=== PATIENT | female | born 1975 ===

== ENCOUNTER 2025-06-08 08:31 | Outpatient (REF) | payer BC, SELFPAY ==
--- NOTE | ~2025-06-08 | XR_ITS ---
CLINICAL HISTORY: M25.511 - Pain in right shoulder 3 view right shoulder Comparison: None provided Findings: No fractures or dislocations. Mild osteoarthritis of the right shoulder. No erosions. No radiopaque foreign body. Partially visualized lungs are unremarkable. IMPRESSION: 1. No acute findings This document has been electronically signed by: Fidencio Bee MD on 06/10/2025 02:57:42
--- OUTSIDE RECORDS SUMMARY | 2025-06-08 08:50 | XMS_ITS | Clinical Summary ---
Author Organization [facility] ity Address [address] [place] [address] Care Team Providers Care Nondestructive Tester Name Role Phone Krystle Cao MD Primary Care Provider Social History Tobacco Use Types Packs/Day Years Used Date Smoking Tobacco: Never Assessed Comments Unknown Sex and Gender Information Value Date Recorded Sex Assigned at Not on file Legal Sex Female 1:58 AM EST Gender Identity Not on file Sexual Orientation Not on file Plan of Treatment Health Maintenance Due Date Last Done Comments Breast Cancer Screening 1973 DTaP,Tdap,and Td Vaccines (1 - Tdap) 1992 Hepatitis B Vaccines (1 of 3 - 19+ 3-dose series) 1992 Cervical Cancer Screening: P ap Smear 1994 Colorectal Cancer Screening: Colonoscopy 08/16/2022 HIV Screening 08/16/2022 Hepatitis C Screening 08/16/2022 Social Influencers of Health Screening 08/16/2022 Pneumococcal Vaccine: 50+ Ye ars (1 of 1 - PCV) 2023 Zoster Vaccines (1 of 2) 2023 Depression Screening 09/13/2024 COVID-19 Vaccine (1 - 2023-2 5 season) 2025 Influenza Vaccine (#1) 2025 HIB Vaccines Aged Out No longer eligi ble based on patient's age to complete this topic HPV Vaccines Aged Out No longer eligi ble based on patient's age to complete this topic Hepatitis A Vaccines Aged Out No long er eligible based on patient's age to complete this topic IPV Vaccines Aged Out No longer eligi ble based on patient's age to complete this topic MMR Vaccines Aged Out No longer eligi ble based on patient's age to complete this topic Meningococcal ACWY Vaccine Aged Out N o longer eligible based on patient's age to complete this topic Meningococcal B Vaccine Aged Out No l onger eligible based on patient's age to complete this topic RSV Immunization Patients Un justus 20 months Aged Out No longer eligible b ased on patient's age to complete this topic Varicella Vaccines Aged Out No longer eligible based on patient's age to complete this topic Care Teams Nondestructive Tester Relationship Specialty Start Date End Date Krystle Cao MD PCP - General 09/13/08
== END 2025-06-08 08:32 | disposition home or self-care (01) ==
LOC: HO.HOSX 08:31
PROVIDERS: Visit Provider Physician Assistant
DX: S46.211A Strain of muscle, fascia and tendon of other parts of biceps, right arm, initial encounter (principal); X50.3XXA Overexertion from repetitive movements, initial encounter; Y93.89 Activity, other specified; Y92.242 Post office as the place of occurrence of the external cause; Y99.0 Civilian activity done for income or pay
CPT/HCPCS: 73030

== ENCOUNTER 2025-06-08 10:20 | Outpatient (AMB) | payer BC, SELFPAY ==
--- NOTE | 2025-06-08 10:33 | MHC.OFFVIS ---
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 MRI scanned into chart. Patient seen by PCP who ordered MRI and referred to orthopedics. 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 She was repetitively performing overhead lifting while filling up a bin, states that when she went up she was not able to raise her arm. She has complaints of limited ROM. History of right shoulder RTC repair with Dr. Warren, states her pain is worse than before her surgery in the past. 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 She states she has a history of surgery back in 2002 or 2003 right shoulder rtc repair with dr Warren. She recovered well. She states around February or March she developed right shoulder pain. 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 She states one day she was filling some trays and as she reached up to lock it , she had pain in the right shoulder and is now unable to loft the arm. [facility] Surgical History (Updated 06/08/25 @ 10:41 by RUDDY Agrawal) Hx of shoulder surgery Hx of cholecystectomy Social History (Updated 06/08/25 @ 10:41 by RUDDY Agrawal) Patient Tobacco Use Status: Current everyday Tobacco user Current occupational status: unemployed Current occupation: right hand dominant Review of Systems Const All systems reviewed & are unremarkable except as noted in HPI and below Physical Exam Vital Signs: BMI result Body Mass Index 22.3 Const General: cooperative and no acute distress Orientation/consciousness: patient oriented x3 Resp Effort & Inspection: normal respiratory effort and able to speak in complete sentences Cardio Peripheral pulses: Peripheral pulses 2+ throughout Neuro General: patient oriented x3 Extrem Other: Right shoulder normal to inspection. She does have limited motion with forward flexion to approximately 85 degrees. She has significant tenderness over the proximal biceps tendon with a positive [place]'s. She is able to activate rotator cuff strength. Neurovascularly intact. Results Reviewed Results Reviewed: X-rays of the right shoulder obtained in the office today and reviewed by me show evidence of subacromial decompression and rotator cuff repair. Assessment & Plan Assessment & Plan (1) Rupture of right proximal biceps tendon: Code(s): S46.211A - Strain of muscle, fascia and tendon of other parts of biceps, right arm, initial encounter Category: Medical Plan: I offered the patient an injection in the office today which she would like to hold off on. I also discussed with her potential surgical intervention for her shoulder given she has some AC joint arthritis but also a partial tear of the proximal biceps tendon. Since she is known to Dr. Warren and she has had surgery with him in the past I will have her see him to discuss further. The patient is content with this plan. Orders: Orders XR shoulder RT min 2V Today M25.511 - Pain in right shoulder Coding Level of Care Code New Pt Level 3 (02017) Complex EM visit Add On G2211 Diagnoses Rupture of right proximal biceps tendon S46.211A
[2025-06-08 10:43] VITALS: BMI 22.3
== END 2025-06-08 11:11 | disposition home or self-care (01) ==
LOC: HO.HOS 10:20
PROVIDERS: Visit Provider Physician Assistant
DX: S46.211A Strain of muscle, fascia and tendon of other parts of biceps, right arm, initial encounter (principal)
CPT/HCPCS: 99203

== ENCOUNTER → 2025-06-08 10:22 | Outpatient (BNV) | payer BC, SELFPAY | PROVIDERS: Visit Provider Student in an Organized Health Care Education/Training Program | DX: M25.511 Pain in right shoulder (principal) | CPT/HCPCS: 73030 ==

== ENCOUNTER 2025-06-13 12:44 | Outpatient (AMB) | payer BC, SELFPAY ==
--- NOTE | 2025-06-13 12:56 | MHC.OFFVIS ---
Vital Signs 06/13/25 12:59 Height 5 ft 2 in Weight 122 lb BMI 22.3 Intake Visit Reasons: Right shoulder pain and weakness Intake Note: Bj is a 49 year old male who presents with complaints of progressively worsening right shoulder pain and weakness. The patient states that her symptoms have gotten worse over the last few years. She reports difficulty lifting her right hand to shoulder height. She states that she had a recent right shoulder MRI. She is not sure what MRI facility perform the MRI. She thinks it may have been at [facility] or in [place]. Allergies acetaminophen (From Percocet) Allergy (Verified 06/13/25 12:59) itchy, hives oxycodone (From Percocet) Allergy (Verified 06/13/25 12:59) itchy, hives Sulfa (Sulfonamide Antibiotics) Allergy (Verified 06/13/25 12:59) itchy, hives Medication List - Last Reconciled 06/13/25 by Feliberto Warren MD cyclobenzaprine 5 - 10 mg PO BID PRN pregabalin 75 mg PO BID PFSH Surgical History (Updated 06/08/25 @ 10:41 by RUDDY Agrawal) Hx of shoulder surgery Hx of cholecystectomy Social History (Updated 06/08/25 @ 10:41 by RUDDY Agrawal) Patient Tobacco Use Status: Current everyday Tobacco user Current occupational status: unemployed Current occupation: right hand dominant Physical Exam Vital Signs: BMI result Body Mass Index 22.3 Const Other: Well-nourished well-developed very friendly female awake alert and oriented x3 in no acute distress Extrem Other: Right shoulder examination shows decreased range of motion when compared to her left shoulder, 4/5 strength with supraspinatus testing, positive impingement signs, no instability Results Reviewed Results Reviewed: X-rays of the patient's right shoulder show severe acromioclavicular joint narrowing, a type 2 acromion, no acute bony abnormalities MRI report of the patient's right shoulder is not available today. Assessment & Plan Assessment & Plan (1) Rotator cuff insufficiency of right shoulder: Code(s): M25.311 - Other instability, right shoulder Category: Medical Plan Ms. Green presents with progressively worsening right shoulder pain and weakness most likely due to a rotator cuff tear. I will attempt to get the patient's MRI report. I will call her once the report is available to discuss the findings and treatment options. Feel free to call me at any time should questions regarding her orthopedic management arise. I spent 22 minutes in reviewing the patient's records and imaging studies, seeing the patient and documenting in the medical record. Coding Level of Care Code New Pt Level 3 (94899) Complex EM visit Add On G2211 Diagnoses Rotator cuff insufficiency of right shoulder M25.311
[2025-06-13 12:59] VITALS: BMI 22.3
--- OUTSIDE RECORDS SUMMARY | 2025-06-13 14:05 | XMS_ITS | Clinical Summary ---
Author Organization [facility] Address [address] [place] [address] Care Team Providers Care Stripper Preliminary Name Role Phone Krystle Cao MD Primary [...] Last Done Comments Breast Cancer Screening 1973 Colorectal Cancer Screening: Colonoscopy 1973 DTaP,Tdap,and Td Vaccines (1 - Tdap) 1992 Hepatitis B Vaccines (1 of 3 - 19+ 3-dose series) 1992 Cervical Cancer Screening: P ap Smear 1994 HIV Screening 08/16/2022 Hepatitis C Screening 08/16/2022 Social Influencers of Health Screening 08/16/2022 Pneumococcal Vaccine: 50+ Ye ars (1 of 1 - PCV) 2023 Zoster Vaccines (1 of 2) 2023 Depression Screening 09/13/2024 COVID-19 Vaccine (1 - 2023-2 5 season) 2025 Influenza Vaccine (#1) 2025 RSV Immunization Adult Patie nts (1 - 1-dose 75+ series) 2048 HIB Vaccines Aged Out No longer eligi [...] age to complete this topic Care Teams Stripper Preliminary Relationship Specialty Start Date End Date Krystle Cao MD PCP - General 09/13/08
== END 2025-06-13 13:13 | disposition home or self-care (01) ==
LOC: HO.HOS 12:45
PROVIDERS: Visit Provider Orthopaedic Surgery
DX: M25.311 Other instability, right shoulder (principal)
CPT/HCPCS: 99203

== ENCOUNTER 2025-07-12 12:24 | Outpatient (AMB) | payer BC, SELFPAY ==
--- NOTE | 2025-07-12 12:38 | A.OFFVIS_ITS ---
Vital Signs 07/12/25 12:46 Height 5 ft 2 in Weight 122 lb BMI 22.3 Intake Visit Reasons: Right shoulder pain Intake Note: Bj is a 50 year old right hand dominant female who presents with complaints of progressively worsening right shoulder pain. She describes her pain as sharp and severe in nature. Her pain has gotten worse over the last few years in spite of continued non operative treatments. She has had cortisone injections in the past which gave her minimal relief. She has also tried Tylenol, anti- inflammatory medicines and physical therapy exercises which gave her no relief. The patient reports difficulty lifting her right hand above shoulder height. Allergies acetaminophen (From Percocet) Allergy (Verified 07/12/25 12:46) itchy, hives acetazolamide Allergy (Verified 07/12/25 12:46) Hives butalbital (From Fioricet) Allergy (Verified 07/12/25 12:46) Unknown caffeine (From Fioricet) Allergy (Verified 07/12/25 12:46) Unknown metformin Allergy (Verified 07/12/25 12:46) Gastrointestinal Upset oxycodone (From Percocet) Allergy (Verified 07/12/25 12:46) itchy, hives Sulfa (Sulfonamide Antibiotics) Allergy (Verified 07/12/25 12:46) itchy, hives sumatriptan Allergy (Verified 07/12/25 12:46) Unknown varenicline Allergy (Verified 07/12/25 12:46) Unknown Medication List - Last Reconciled 07/12/25 by Feliberto Warren MD diazepam 5 mg PO DAILY PRN PFSH Medical History Arthritis Anemia Current smoker Vitamin D deficiency Uninodular goiter PTSD (post-traumatic stress disorder) Prediabetes PCOS (polycystic ovarian syndrome) Nicotine dependence Migraine Depression Lump of right breast Insomnia Hyperemesis Gestational diabetes mellitus COVID-19 Generalized anxiety disorder with panic attacks GERD (gastroesophageal reflux disease) Eczema Disc disorder of lumbar region Diarrhea DJD (degenerative joint disease) Chronic cystitis Back pain Arthralgia of temporomandibular joint Anxiety Allergic rhinitis Adverse effect of COVID-19 vaccine Acne Abnormal mammogram of left breast Surgical History Hx of tooth extraction Hx of hysterectomy History of hysteroscopy Hx of umbilical hernia repair Hx of section Hx of dilation and curettage Hx of tonsillectomy Hx of arthroscopy Hx of breast biopsy Hx of shoulder surgery Hx of cholecystectomy Social History Household Members Other:: SON Are you a primary palliative care coordinator to a significant other at home: Yes Do you presently have visiting nurse or other home services: No Patient Tobacco Use Status: Current everyday Tobacco user Tobacco use type: Cigarette Cigarette Packs Per Day: 1.0 Cigarettes Per Day: 20.0 Use of substances other than those prescribed or required for medical reasons: No Have you been hit, kicked, punched, or otherwise hurt by someone within the past year? If so, by whom?: No Are you DNR?: No Advance Directives: No Advance Directives Information Provided: No Advance Directives on File: No Patient : No : No Current occupational status: unemployed Current occupation: right hand dominant Physical Exam Vital Signs: BMI result Body Mass Index 22.3 Const Other: Well-nourished well-developed very friendly female awake alert and oriented x3 in no acute distress Extrem Other: Right shoulder examination shows decreased range of motion when compared to her left shoulder, 4/5 strength with supraspinatus testing, positive impingement signs, tenderness over her acromioclavicular joint, no instability Results Reviewed Results Reviewed: MRI of the patient's right shoulder shows severe acromioclavicular joint narrowing, a type 2 acromion, signal change within the supraspinatus tendon most likely due to a full-thickness rotator cuff tear Assessment & Plan Assessment & Plan (1) Right shoulder pain: Code(s): M25.511 - Pain in right shoulder (2) Impingement syndrome of right shoulder: Code(s): M75.41 - Impingement syndrome of right shoulder Category: Medical Plan Ms. Green presents with right shoulder pain and weakness due to impingement syndrome, acromioclavicular joint arthritis and most likely a full-thickness rotator cuff tear. I had a lengthy discussion with the patient regarding the treatment options. At this point she has failed continued non operative treatments. The risks and benefits of right shoulder surgery were discussed at length with the patient. The patient wishes to proceed with surgery. Surgery will most likely involve right shoulder arthroscopic distal clavicle excision, right shoulder arthroscopic acromioplasty and right shoulder mini open rotator cuff repair. The patient will be given a prescription for pain medicine at the time of her surgery. She will follow up as instructed. Feel free to call me at any time should questions regarding her orthopedic management arise. I spent 21 minutes in reviewing the patient's records and imaging studies, seeing the patient and documenting in the medical record. Coding Level of Care Code Est Pt Level 3 (47636) Complex EM visit Add On G2211 Diagnoses Right shoulder pain M25.511 Impingement syndrome of right shoulder M75.41
[2025-07-12 12:46] VITALS: BMI 22.3
== END 2025-07-12 13:00 | disposition home or self-care (01) ==
LOC: HO.HOS 12:25
PROVIDERS: Visit Provider Orthopaedic Surgery
DX: M25.511 Pain in right shoulder (principal); M75.41 Impingement syndrome of right shoulder
CPT/HCPCS: 99214

== ENCOUNTER 2025-07-20 07:02 | Day surgery (SDC) | payer BC, SELFPAY ==
[2025-07-09 11:31] VITALS: BMI 22.3
[2025-07-20] VITALS (9 sets, daily range): BP systolic 126–158; BP diastolic 72–93; PULSE 72–95; RESP 16–18; TEMP 36.1–36.9; O2SAT 96–97; BMI 22.9
[2025-07-20] MEDS: Lactated Ringers 1,000 ML 100 ML IVCONT (07:36)
--- NOTE | 2025-07-20 08:25 | HO.ANESPROP2 ---
Documented by User: Anna Arambula NP 07/19/25 14:46 HPI - Anesthesia Eval Consult details Narrative: 50 yr old female for right Shoulder Arthroscopy,distal clavicle excision,acromioplasty with possible Mini Open RCR; secheduled for 07/20/25, had phone PAT screening with RN Smoking 1 pk cigarettes per day Saw [facility] preop clinic for medical clearance 07/05/25: no absolute contraindications identified to proceeding with proposed surgery PMFSH Active Problems Active Problems: All Active Problems Rotator cuff insufficiency of right shoulder (Acute) Rupture of right proximal biceps tendon (Acute) Past Medical History Medical History Arthritis Anemia Current smoker Vitamin D deficiency Uninodular goiter PTSD (post-traumatic stress disorder) Prediabetes PCOS (polycystic ovarian syndrome) Nicotine dependence Migraine Depression Lump of right breast Insomnia Hyperemesis Gestational diabetes mellitus COVID-19 Generalized anxiety disorder with panic attacks GERD (gastroesophageal reflux disease) Eczema Disc disorder of lumbar region Diarrhea DJD (degenerative joint disease) Chronic cystitis Back pain Arthralgia of temporomandibular joint Anxiety Allergic rhinitis Adverse effect of COVID-19 vaccine Acne Abnormal mammogram of left breast Surgical History Surgical History Hx of tooth extraction Hx of hysterectomy History of hysteroscopy Hx of umbilical hernia repair Hx of section Hx of dilation and curettage Hx of tonsillectomy Hx of arthroscopy Hx of breast biopsy Hx of shoulder surgery Hx of cholecystectomy Social History Social History Household Members Other:: SON Are you a primary primary care physician to a significant other at home: Yes Do you presently have visiting nurse or other home services: No Patient Tobacco Use Status: Current everyday Tobacco user Tobacco use type: Cigarette Cigarette Packs Per Day: 1.0 Cigarettes Per Day: 20.0 Use of substances other than those prescribed or required for medical reasons: No Have you been hit, kicked, punched, or otherwise hurt by someone within the past year? If so, by whom?: No Are you DNR?: No Advance Directives: No Advance Directives Information Provided: Yes Advance Directives on File: No Patient : No : No Current occupational status: unemployed Current occupation: right hand dominant Meds Allergies Allergy/AdvReac Type Severity Reaction Status Date / Time acetazolamide Allergy Hives Verified 07/12/25 12:46 butalbital (From Fioricet) Allergy Unknown Verified 07/12/25 12:46 caffeine (From Fioricet) Allergy Unknown Verified 07/12/25 12:46 metformin Allergy Gastrointestinal Verified 07/12/25 12:46 Upset oxycodone (From Percocet) Allergy itchy, Verified 07/12/25 12:46 hives Sulfa (Sulfonamide Allergy itchy, Verified 07/12/25 12:46 Antibiotics) hives sumatriptan Allergy Unknown Verified 07/12/25 12:46 varenicline Allergy Unknown Verified 07/12/25 12:46 Home Medications ?Medication ?Instructions ?Recorded ?Confirmed ?Last Taken ?Type No Known Home Meds 07/20/25 07/20/25 Unknown History Exam Height,Weight and Vital Signs: Height 5 ft 2 in Weight 55.338 kg Pertinent Lab Results Pertinent Lab Results: [facility] results 07/05/25 WBC 5 RBC 4.87 Hgb 12 Hct 38.6 Platelet 295 Sodium 137 Potassium 4.1 Glucose 102 BUN 12 Creat 0.8 Calcium 9.6 Narrative Narrative: EKG 11/10/24 Normal sinus rhythm, rate [address]-T wave changes Documented by User: July Joseph DO 07/20/25 09:23 [facility] Past Medical History Medical History Arthritis Anemia Current smoker Vitamin D deficiency Uninodular goiter PTSD (post-traumatic stress disorder) Prediabetes PCOS (polycystic ovarian syndrome) Nicotine dependence Migraine Depression Lump of right breast Insomnia Hyperemesis Gestational diabetes mellitus COVID-19 Generalized anxiety disorder with panic attacks GERD (gastroesophageal reflux disease) Eczema Disc disorder of lumbar region Diarrhea DJD (degenerative joint disease) Chronic cystitis Back pain Arthralgia of temporomandibular joint Anxiety Allergic rhinitis Adverse effect of COVID-19 vaccine Acne Abnormal mammogram of left breast Family History Family history of problems with anesthesia: No Surgical History Surgical History Hx of tooth extraction Hx of hysterectomy History of hysteroscopy Hx of umbilical hernia repair Hx of section Hx of dilation and curettage Hx of tonsillectomy Hx of arthroscopy Hx of breast biopsy Hx of shoulder surgery Hx of cholecystectomy History of Problems with Anesthesia: No Social History Social History Household Members Other:: SON Are you a primary primary care physician to a significant other at home: Yes Do you presently have visiting nurse or other home services: No Patient Tobacco Use Status: Current everyday Tobacco user Tobacco use type: Cigarette Cigarette Packs Per Day: 1.0 Cigarettes Per Day: 20.0 Use of substances other than those prescribed or required for medical reasons: No Have you been hit, kicked, punched, or otherwise hurt by someone within the past year? If so, by whom?: No Are you DNR?: No Advance Directives: No Advance Directives Information Provided: Yes Advance Directives on File: No Patient : No : No Current occupational status: unemployed Current occupation: right hand dominant Meds Allergies Allergy/AdvReac Type Severity Reaction Status Date / Time acetazolamide Allergy Hives Verified 07/12/25 12:46 butalbital (From Fioricet) Allergy Unknown Verified 07/12/25 12:46 caffeine (From Fioricet) Allergy Unknown Verified 07/12/25 12:46 metformin Allergy Gastrointestinal Verified 07/12/25 12:46 Upset oxycodone (From Percocet) Allergy itchy, Verified 07/12/25 12:46 hives Sulfa (Sulfonamide Allergy itchy, Verified 07/12/25 12:46 Antibiotics) hives sumatriptan Allergy Unknown Verified 07/12/25 12:46 varenicline Allergy Unknown Verified 07/12/25 12:46 Home Medications ?Medication ?Instructions ?Recorded ?Confirmed ?Last Taken ?Type No Known Home Meds 07/20/25 07/20/25 Unknown History Exam Exam Date and Time: 07/20/25 0825 Height,Weight and Vital Signs: Vital Signs Temperature 98.5 F 07/20/25 07:07 Pulse Rate 72 07/20/25 07:07 Respiratory Rate 18 07/20/25 07:07 Blood Pressure 126/78 07/20/25 07:07 Pulse Oximetry 97 07/20/25 07:07 Oxygen Delivery Method Room Air 07/20/25 07:07 Temperature 98.5 F 07/20/25 07:07 Pulse Rate 72 07/20/25 07:07 Respiratory Rate 18 07/20/25 07:07 Blood Pressure 126/78 07/20/25 07:07 Pulse Oximetry 97 07/20/25 07:07 Oxygen Delivery Method Room Air 07/20/25 07:07 Height 5 ft 2 in Weight 55.338 kg Airway Mallampati Class: III (small mouth aperture) TM Dist: >3cm Neck ROM: Limited Loose/Missing/Broken Teeth: Yes (several missing and broken teeth) Heart: S1S2 Lungs: CTAB Assessment and Plan Assessment Anesthesia Assessment: Anesthesia Plan Discussed and Chart Reviewed Final Anesthetic Review Family History of Problems with Anesthesia: No History of Problems with Anesthesia: No NPO: Yes ASA Class: II Final Preanesthetic Review: No Changes in Pt Med Stat, Meds/Allgs Chart Reviewed, Consent Obtained/Reviewed and Anes Risks/Benef Reviewed Patient Risk: Low Procedure Risk: Intermediate Anesthetic Plan Anesthetic Plan: GA, Regional Block (right brachial plexus block) and Agree w/ Assess. and Plan Disposition: Standard PACU
--- NOTE | 2025-07-20 10:15 | PM.OP ---
Brief Operative Note Date of Service: 07/20/25 Pre-op diagnosis: Right shoulder impingement syndrome, right shoulder acromioclavicular joint arthritis, possible right shoulder rotator cuff tear Post-op diagnosis: other (Right shoulder impingement syndrome, right shoulder acromioclavicular joint arthritis, right shoulder adhesive capsulitis) Procedure: Right shoulder arthroscopic distal clavicle excision, right shoulder arthroscopic acromioplasty, right shoulder arthroscopic anterior capsular release, right shoulder manipulation under anesthesia Implants: None Surgeon: Feliberto Warren MD Anesthesia: GETA and regional Was an [employer] used for this Procedure?: No Estimated blood loss (mL): 10 Pathology: none sent Condition: stable Disposition: PACU
--- NOTE | 2025-07-20 10:16 | P.OP_ITS ---
Operative Note Operative Note Date of Service: 07/20/25 Narrative: After the patient was identified as Bj Green and her right shoulder was initialed by myself the patient was brought to the holding area where a right shoulder interscalene regional block was performed by the anesthesiologist in routine fashion. The patient was then brought to the operating room where general anesthesia was induced by the anesthesiologist in routine fashion. The patient was given 2 g of IV Ancef preoperatively for infection prophylaxis. Examination under anesthesia of the patient's right shoulder showed decreased passive range of motion when compared to the left shoulder. The patient's right shoulder had passive forward flexion to 110 degrees compared to 170 degrees, external rotation to 20 degrees compared to 70 degrees, and internal rotation to 40 degrees compared to 50 degrees. The patient was gently positioned in the beach chair position with all bony prominences well padded. The patient's right shoulder region and upper extremity were prepped and draped in sterile fashion. A formal time-out was completed. A #11 scalpel blade was used to make a posterior portal 2 cm inferior and 1 cm medial to the posterolateral corner of the acromion. Blunt trocar technique was used to enter the glenohumeral joint in routine fashion. An anterior portal was made just lateral to the coracoid process after proper positioning was confirmed using a spinal needle. Diagnostic arthroscopy showed minimal degenerative changes of the glenoid and humeral head articular surfaces. There was no evidence of rotator cuff tearing. There was no evidence of injury to the biceps tendon or its insertion onto the glenoid. There was inflammation of the anterior joint capsule consistent with adhesive capsulitis. The ArthroCare Wand was then used to perform an anterior capsular release between the inferior border of the biceps tendon and the superior border of the subscapularis tendon. The arthroscope was then placed from the posterior portal into the subacromial space. A lateral portal was made 2 fingerbreadths lateral to the anterior lateral corner of the acromion. The ArthroCare Wand was used to ablate soft tissues along the undersurface of the acromion as well as to excise the coracoacromial ligament. There was a sharp spur along the undersurface of the acromion which was removed using the hooded bur. The arthroscope was then placed into the lateral portal and the acrom ioplasty was completed with the bur in the posterior portal using the posterior aspect of the acromion as a cutting block. The ArthroCare Wand was then brought in through the anterior portal and was used to ablate soft tissues along the acromioclavicular joint and distal clavicle. The posterior and superior ligamentous structures were left intact. A distal clavicle excision of 8 mm was performed using the fluted bur. Any remaining bursal tissue was removed using the arthroscopic shaver. The subacromial space was irrigated and then drained. All arthroscopic instruments were removed. A gentle manipulation under anesthesia was then performed. Full passive range of motion was easily attained. The 3 portals were closed with 3-0 nylon interrupted suture. The subacromial space was injected with Marcaine. Dry sterile dressing was placed over all incisions. The patient's right upper extremity was placed into a sling. The patient was awoken and extubated in the operating room. The patient was transferred to the recovery room in stable condition.
== END 2025-07-20 12:28 | disposition home or self-care (01) ==
PROVIDERS: PCP Internal Medicine; Visit Provider Orthopaedic Surgery
PROC: (CPT 29824; principal; 2025-07-20 09:00)
DX: M75.41 Impingement syndrome of right shoulder (principal); M75.01 Adhesive capsulitis of right shoulder; M19.011 Primary osteoarthritis, right shoulder; M25.511 Pain in right shoulder; M25.311 Other instability, right shoulder; M62.81 Muscle weakness (generalized); R73.03 Prediabetes; F33.9 Major depressive disorder, recurrent, unspecified; F41.1 Generalized anxiety disorder; F41.0 Panic disorder [episodic paroxysmal anxiety]; Z79.899 Other long term (current) drug therapy; Z88.2 Allergy status to sulfonamides; Z88.5 Allergy status to narcotic agent; Z98.890 Other specified postprocedural states; F17.210 Nicotine dependence, cigarettes, uncomplicated; Z56.0 Unemployment, unspecified
CPT/HCPCS: 29824; 29825; 29826; J0131; J0165; J0690; J0696; J1100; J2003; J2250; J2405; J2704; J2795

== ENCOUNTER → 2025-07-20 07:02 | Outpatient (BNV) | payer BC, SELFPAY | PROVIDERS: PCP Internal Medicine; Visit Provider Orthopaedic Surgery | DX: M75.41 Impingement syndrome of right shoulder (principal); M19.011 Primary osteoarthritis, right shoulder | CPT/HCPCS: 29824; 29826 ==

== ENCOUNTER 2025-08-02 10:42 | Outpatient (AMB) | payer BC, SELFPAY ==
--- NOTE | 2025-08-02 10:48 | A.OFFVIS_ITS ---
Vital Signs 08/02/25 10:58 Height 5 ft 2 in Weight 120 lb BMI 21.9 Intake Visit Reasons: Right shoulder pain Intake Note: Bj is a 50 year old female who presents with complaints of moderate discomfort in her right shoulder after undergoing right shoulder arthroscopic surgery on 07/20/2025. She continues with her gentle stretching exercises. She does take Dilaudid which gives her fairly good relief. She wishes to go to formal physical therapy near her home in [place]. Allergies acetazolamide Allergy (Verified 08/02/25 11:00) Hives butalbital (From Fioricet) Allergy (Verified 08/02/25 11:00) Unknown caffeine (From Fioricet) Allergy (Verified 08/02/25 11:00) Unknown metformin Allergy (Verified 08/02/25 11:00) Gastrointestinal Upset oxycodone (From Percocet) Allergy (Verified 08/02/25 11:00) itchy, hives Sulfa (Sulfonamide Antibiotics) Allergy (Verified 08/02/25 11:00) itchy, hives sumatriptan Allergy (Verified 08/02/25 11:00) Unknown varenicline Allergy (Verified 08/02/25 11:00) Unknown Medication List - Last Reconciled 08/02/25 by Feliberto Warren MD diazepam (Valium) 2 mg PO BEDTIME PRN PFSH Medical History Arthritis Anemia Current smoker Vitamin D deficiency Uninodular goiter PTSD (post-traumatic stress disorder) Prediabetes PCOS (polycystic ovarian syndrome) Nicotine dependence Migraine Depression Lump of right breast Insomnia Hyperemesis Gestational diabetes mellitus COVID-19 Generalized anxiety disorder with panic attacks GERD (gastroesophageal reflux disease) Eczema Disc disorder of lumbar region Diarrhea DJD (degenerative joint disease) Chronic cystitis Back pain Arthralgia of temporomandibular joint Anxiety Allergic rhinitis Adverse effect of COVID-19 vaccine Acne Abnormal mammogram of left breast Surgical History (Reviewed 08/02/25 @ 11:01 by Madina Munroe [facility]) Hx of tooth extraction Hx of hysterectomy History of hysteroscopy Hx of umbilical hernia repair Hx of section Hx of dilation and curettage Hx of tonsillectomy Hx of arthroscopy Hx of breast biopsy Hx of shoulder surgery Hx of cholecystectomy Social History Household Members Other:: SON Are you a primary landcare officer to a significant other at home: Yes Do you presently have visiting nurse or other home services: No Patient Tobacco Use Status: Current everyday Tobacco user Tobacco use type: Cigarette Cigarette Packs Per Day: 1.0 Cigarettes Per Day: 20.0 Current occupational status: unemployed Current occupation: right hand dominant Physical Exam Vital Signs: BMI result Body Mass Index 21.9 Extrem Other: Right shoulder examination shows that the surgical incisions are healing well, no erythema, mild to moderate discomfort with range of motion, no instability Assessment & Plan Assessment & Plan (1) Impingement syndrome of right shoulder: Code(s): M75.41 - Impingement syndrome of right shoulder Category: Medical (2) Right shoulder pain: Code(s): M25.511 - Pain in right shoulder Plan Ms. Green is doing well after undergoing right shoulder arthroscopic surgery on 07/20/2025. Her sutures were removed and Steri-Strips placed over her incisions. I did refill her prescription for Dilaudid. I also gave her a prescription to go to formal physical therapy. She will contact me prior to her follow-up appointment in 6-8 weeks should any questions or concerns arise. I spent 21 minutes in reviewing the patient's records and imaging studies, seeing the patient and documenting in the medical record. Orders: Orders PT Evaluation and Treatment 08/03/25 M75.41 - Impingement syndrome of right shoulder Medications: New hydromorphone (Dilaudid) Partial Fill upon patient request. Take 1-2 tabs every 4 hours as needed for pain 4 mg (2 x 2 mg) PO Q4H 40 tabs 0RF Coding Level of Care Code Global (71892) Diagnoses Impingement syndrome of right shoulder M75.41 Right shoulder pain M25.511
[2025-08-02 10:58] VITALS: BMI 21.9
--- OUTSIDE RECORDS SUMMARY | 2025-08-02 16:07 | XMS_ITS | Clinical Summary ---
Author Organization [employer] [email or web address] [facility] ity Address [id number] [place] [id number] Care Team Providers Care Superintendent Building Name Role Phone Krystle Cao MD Primary [...] Depression Screening 09/13/2024 COVID-19 Vaccine (1 - 2024-2 6 season) 2025 Influenza Vaccine (#1) 2025 RSV [...] age to complete this topic Care Teams Superintendent Building Relationship Specialty Start Date End Date Krystle Cao MD PCP - General 09/13/08
== END 2025-08-02 11:22 | disposition home or self-care (01) ==
LOC: HO.HOS 10:43
PROVIDERS: Visit Provider Orthopaedic Surgery
DX: M75.41 Impingement syndrome of right shoulder (principal); M25.511 Pain in right shoulder
CPT/HCPCS: 99024